=== PATIENT | female | born 1980 | race Caucasian/White ===

== ENCOUNTER → 2020-04-27 09:15 | Outpatient (CLI) | payer BC, OTHER, SELFPAY ==
--- NOTE | ~2020-04-27 | US_ITS ---
EXAMINATION: US thyroid DATE: 04/27/2020 09:37 INDICATION: Goiter. TECHNIQUE: Multiple ultrasound images of the thyroid were obtained. COMPARISON: Neck CT 01/18/2019 FINDINGS: The right thyroid lobe measures 5.5 x 1.7 x 2.1 cm. The left thyroid lobe measures 5.1 x 1.6 x 2.2 c m. In the left thyroid lobe, there is a 1.1 cm solid, hypoechoic, cswns-ulhz-ssri nodule with smooth margin without echogenic foci (TI-RADS TR4). In the left thyroid lobe, there is a 5 mm solid, hypoec hoic, tzhvr-ftwr-yatt nodule with smooth margin without echogenic foci (TR4). In the right thyroid lo be, there is a 2.0 cm solid, isoechoic, zqjey-bhir-nuns nodule with ill-defined margin without echoge marko foci (TR3). IMPRESSION: 1. Thyroid nodules. Thyroid ultrasound is recommended in one year. Reviewed, dictated and finalized at location B.
== END ==
PROVIDERS: PCP Family Medicine; Visit Provider Internal Medicine Endocrinology, Diabetes & Metabolism
DX: E04.2 Nontoxic multinodular goiter (principal)
CPT/HCPCS: 76536

== ENCOUNTER 2020-05-17 14:25 | Outpatient (CLI) | payer BC, OTHER, SELFPAY ==
--- NOTE | ~2020-05-17 | NM_ITS ---
EXAMINATION: NM thyroid scan w uptake DATE: 05/18/2020 15:14 INDICATION: Nontoxic single thyroid nodule. COMPARISON: Ultrasound 04/27/2020 TECHNIQUE: 0.336 mCi I-123 was administered orally. Scintigraphic images of the thyroid gland were o btained at 24 hours. Thyroid uptake was calculated by the technologist. FINDINGS: The thyroid uptake is 23% (normal 10-30%), with the right lobe measuring 14% uptake and the left 10%. There is no focal area of decreased or increased activity to suggest hypofunctioning or hyperfunctio alma nodule. IMPRESSION: 1. Normal thyroid scintigraphy and 24-hour iodine uptake. Reviewed, dictated and finalized at location A.
== END 2020-05-17 14:26 | disposition home or self-care (01) ==
LOC: ANHIMG 14:31
PROVIDERS: PCP Family Medicine; Visit Provider Internal Medicine Endocrinology, Diabetes & Metabolism
DX: E04.1 Nontoxic single thyroid nodule (principal)
CPT/HCPCS: 78014; A9516

== ENCOUNTER 2020-06-01 09:55 | Outpatient (CLI) | payer BC, OTHER, SELFPAY ==
--- NOTE | ~2020-06-01 | US_ITS ---
EXAMINATION: US FNA w image guidance DATE: 06/01/2020 11:28 INDICATION: Nontoxic thyroid nodules TECHNIQUE: A time-out was performed to verify the patient's name, date of , and procedure to be performed . The procedure and its benefits and risks were discussed with the patient. Risks specifically discus sed included bleeding and infection. The patient understood the risks and agreed to proceed. The neck was prepped and draped in the usual sterile manner. Attention was first turned to the left thyroid n odule. 3 mL 1% lidocaine was used for local anesthesia. 6 passes were made with a 25G needle into th e lesion. Appropriate needle location was documented with continuous sonographic guidance. Attention was then turned to the poorly defined nodule/region of concern in the right thyroid lobe. An additio nal 3 mm 1% lidocaine was used for local anesthesia. 6 passes were made with a 25G needle into the l esion. Appropriate needle location was documented with continuous sonographic guidance. Sterile band ages were applied. There were no immediate complications. FINDINGS: Grayscale ultrasound images demonstrate biopsy needles advanced into first a 1.1 cm TI RADS 4 hypoech oic solid nodule in the inferior left thyroid lobe. Subsequent images demonstrate biopsy needles adva nced into an approximately 2.0 cm poorly defined region of slightly decreased echogenicity and coarse hu echotexture in the inferior right thyroid lobe. IMPRESSION: 1. Successful ultrasound-guided fine needle aspiration of a 1.1 cm TI RADS 4 left thyroid nodule. 2. Successful ultrasound-guided fine-needle aspiration of a 2.0 cm region of subtly decreased echogen icity and coarsened echotexture in the inferior right thyroid. It is unclear whether this represents a true discrete nodule. Reviewed, dictated and finalized at location A. IMPRESSION: 1. Successful ultrasound-guided fine needle aspiration of a 1.1 cm TI RADS 4 l eft thyroid nodule. 2. Successful ultrasound-guided fine-needle aspiration of a 2.0 cm region of acosta btly decreased echogenicity and coarsened echotexture in the inferior right thy roid. It is unclear whether this represents a true discrete nodule.
--- NOTE | ~2020-06-01 | US_ITS ---
EXAMINATION: US FNA w image guidance, US FNA additional DATE: 06/01/2020 11:28 INDICATION: Nontoxic thyroid nodules TECHNIQUE: A time-out was performed to verify the patient's name, date of , and procedure to be performed . The procedure and its benefits and risks were discussed with the patient. Risks specifically discus sed included bleeding and infection. The patient understood the risks and agreed to proceed. The neck was prepped and draped in the usual sterile manner. Attention was first turned to the left thyroid n odule. 3 mL 1% lidocaine was used for local anesthesia. 6 passes were made with a 25G needle into th e lesion. Appropriate needle location was documented with continuous sonographic guidance. Attention was then turned to the poorly defined nodule/region of concern in the right thyroid lobe. An additio nal 3 mm 1% lidocaine was used for local anesthesia. 6 passes were made with a 25G needle into the l esion. Appropriate needle location was documented with continuous sonographic guidance. Sterile band ages were applied. There were no immediate complications. FINDINGS: Grayscale ultrasound images demonstrate biopsy needles advanced into first a 1.1 cm TI RADS 4 hypoech oic solid nodule in the inferior left thyroid lobe. Subsequent images demonstrate biopsy needles adva nced into an approximately 2.0 cm poorly defined region of slightly decreased echogenicity and coarse hu echotexture in the inferior right thyroid lobe. IMPRESSION: 1. Successful ultrasound-guided fine needle aspiration of a 1.1 cm TI RADS 4 left thyroid nodule. 2. Successful ultrasound-guided fine-needle aspiration of a 2.0 cm region of subtly decreased echogen icity and coarsened echotexture in the inferior right thyroid. It is unclear whether this represents a true discrete nodule. Reviewed, dictated and finalized at location A. IMPRESSION: 1. Successful ultrasound-guided fine needle aspiration of a 1.1 cm TI RADS 4 l eft thyroid nodule. 2. Successful ultrasound-guided fine-needle aspiration of a 2.0 cm region of acosta btly decreased echogenicity and coarsened echotexture in the inferior right thy roid. It is unclear whether this represents a true discrete nodule.
== END 2020-06-01 09:56 | disposition home or self-care (01) ==
PROVIDERS: PCP Family Medicine; Visit Provider Internal Medicine Endocrinology, Diabetes & Metabolism
DX: E04.1 Nontoxic single thyroid nodule (principal)
CPT/HCPCS: 10005; 10006; 88173; 88305

== ENCOUNTER → 2020-08-30 10:38 | Outpatient (CLI) | payer BC, OTHER, SELFPAY ==
--- NOTE | ~2020-08-30 | US_ITS ---
EXAMINATION: US pelvic complete w TV DATE: 08/30/2020 11:34 INDICATION: Enlarged uterus. Comparison:06/01/2020 TECHNIQUE: Multiple transabdominal and endovaginal sonographic images of the pelvis performed. FINDINGS: The uterus measures 8 x 5.6 x 6.9 cm. There is a echogenic mass in the fundus measuring 3.2 x 2.6 x 2.5 cm. The endometrial complex measures 8 mm. The right ovary measures 2.9 x 2.2 x 3.1 cm and the left ovary measures 2.7 x 2.1 x 3.2 cm. There ar e small follicles in each ovary. There is no free fluid in the pelvis. There are no abnormal masses seen on either side. IMPRESSION: 1. Uterine mass at the fundus consistent with fibroid measuring 3.2 x 2.6 x 2.5 cm. Reviewed, dictated and finalized at location A. LE PASTER
== END ==
PROVIDERS: Visit Provider Family Medicine
DX: N85.8 Other specified noninflammatory disorders of uterus (principal); N85.2 Hypertrophy of uterus
CPT/HCPCS: 76830; 76856

== ENCOUNTER → 2020-09-25 08:15 | Outpatient (CLI) | payer BC, OTHER, SELFPAY ==
--- NOTE | ~2020-09-25 | US_ITS ---
EXAMINATION: US thyroid EXAM DATE: 09/25/2020 09:13 INDICATION: Nontoxic single thyroid nodule. TECHNIQUE: Multiple grayscale and Doppler images of the thyroid were obtained (by a technologist who performed the scan) and subsequently reviewed. Individual nodules and recommendations may be reporte d in accordance with TI-RADS system as designated by the 2017 ACR White Paper TI-RADS committee. Comp demetrius is made to prior examination from 04/27/2020. FINDINGS: The right thyroid lobe measures 4.9 x 2.1 x 1.7 cm, the left measuring 4.8 x 1.7 x 2.0 cm. These dime nsions are mildly enlarged. There are several thyroid nodules identified. Largest nodule is in the left thyroid lobe inferior pole measuring up to 1.1 cm, category TR 4 unchan ged. Previously described larger right thyroid lobe isoechoic region is no longer specifically measur ed, no focal nodule suspected, may have just been a lobulation. IMPRESSION: Multinodular goiter, stable. Consider one-year follow-up ultrasound. Reviewed, dictated and finalized at location B. AGE GARAGE MANAGER IMPRESSION: Multinodular goiter, stable. Consider one-year follow-up ultrasound .
== END ==
PROVIDERS: PCP Family Medicine; Visit Provider Internal Medicine Endocrinology, Diabetes & Metabolism
DX: E04.2 Nontoxic multinodular goiter (principal)
CPT/HCPCS: 76536

== ENCOUNTER 2021-05-28 12:46 | Outpatient (CLI) | payer BC, OTHER, SELFPAY | END 2021-05-28 12:47 | disposition home or self-care (01) | PROVIDERS: PCP Family Medicine; Visit Provider Otolaryngology | DX: H93.19 Tinnitus, unspecified ear (principal) | CPT/HCPCS: 92557; 92567 ==

== ENCOUNTER → 2021-07-16 10:06 | Outpatient (CLI) | payer BC, OTHER, SELFPAY ==
--- NOTE | ~2021-07-16 | MR_ITS ---
EXAMINATION: MR brain IAC wo/w con EXAM DATE: 07/16/2021 11:10 INDICATION: Tinnitus of right ear tinnitus of left ear. TECHNIQUE: Multi-sequential, multiplanar MR images of the brain, brainstem, internal auditory canals were obtained without contrast. Whole brain sagittal T1, axial diffusion, gradient echo (T2*), T1, T 2, FLAIR sequences obtained. High resolution coronal 3-D FIESTA, coronal T1 FSE, axial T1 FSPGR of t he internal auditory canals. Patient was then injected with 18 cc Multihance contrast intravenously. Postcontrast axial and coronal T1 weighted whole brain, axial and coronal high resolution T1 IAC seq uences obtained. There is no prior study for comparison. FINDINGS: No evidence of mastoid or middle ear opacification. The 7th/8th cranial nerve complexes a re symmetric, normal in course and caliber. No cerebellopontine angle masses. Posterior fossa unrem arkable. There are no areas of restricted diffusion to suggest acute infarction. There is no acute hemorrhage seen on the T2*, a hemosiderin sensitive sequence. No intraparenchymal brain mass. The ventricles a re normal in size. There are no extra-axial collections. Flow voids are seen in the cerebral arteri es on the T2-weighted sequences consistent with their expected patency. The orbits are unremarkable. Soft tissue is unremarkable. There are no areas of abnormal enhancement on the postcontrast image s. IMPRESSION: Normal brain/IAC MRI examination. Reviewed, dictated and finalized at location A.
[2021-07-16 10:38] LABS: Estimated Glomerular Filt Rate > 60
== END ==
PROVIDERS: Visit Provider Otolaryngology
DX: H93.11 Tinnitus, right ear (principal)
CPT/HCPCS: 70553; A9577

== ENCOUNTER 2021-09-14 11:47 | Outpatient (CLI) | payer BC, OTHER, SELFPAY ==
--- NOTE | ~2021-09-14 | US_ITS ---
EXAMINATION: US thyroid EXAM DATE: 09/14/2021 12:06 INDICATION: Nontoxic multinodular goiter . TECHNIQUE: Multiple grayscale and Doppler images of the thyroid were obtained (by a technologist who performed the scan) and subsequently reviewed. Individual nodules and recommendations may be reporte d in accordance with TI-RADS system as designated by the 2017 ACR White Paper TI-RADS committee. Comp luis miguelson is made to prior examination from 09/15/2020. FINDINGS: The right thyroid lobe measures 6.0 x 2.0 x 2.0 cm, the left measuring 5.1 x 2.0 x 1.9 cm, moderately enlarged. These dimensions are also larger than on previous examination. Left thyroid lobe nodule measuring 1.2 x 0.6 x 1.2 cm, not significantly changed. Several other thyro id nodules are subcentimeter in size. IMPRESSION: Multinodular goiter, stable. Consider follow-up ultrasound in 2 years. Reviewed, dictated and finalized at location A. OMS DIRECTOR IMPRESSION: Multinodular goiter, stable. Consider follow-up ultrasound in 2 yea rs.
== END 2021-09-14 11:48 ==
PROVIDERS: PCP Family Medicine; Visit Provider Internal Medicine Endocrinology, Diabetes & Metabolism
DX: E04.2 Nontoxic multinodular goiter (principal)
CPT/HCPCS: 76536

== ENCOUNTER → 2022-11-29 14:56 | Outpatient (CLI) | payer OTHER, SELFPAY ==
--- NOTE | ~2022-11-29 | US_ITS ---
EXAMINATION: US pelvic complete w TV DATE: 11/29/2022 15:26 INDICATION: Right lower quadrant pain Comparison:Ultrasound dated 08/30/2020 TECHNIQUE: Multiple transabdominal and endovaginal sonographic images of the pelvis performed. FINDINGS: The uterus measures 7.5 x 4.8 x 6.3 cm. The endometrial complex measures 10 mm. The right ovary measures 3.3 x 2.1 x 3.8 cm and the left ovary measures 3 x 2.1 x 2.8 cm. There are small follicles in each ovary. Normal doppler signal in both ovaries. There is no free fluid in the pelvis. There are no abnormal masses seen on either side. IMPRESSION: 1. Normal pelvic ultrasound. Reviewed, dictated and finalized at location A.
== END ==
PROVIDERS: PCP Family Medicine; Visit Provider Family Medicine
DX: R10.9 Unspecified abdominal pain (principal)
CPT/HCPCS: 76830; 76856

== ENCOUNTER 2023-10-13 17:45 | Outpatient (CLI) | payer OTHER, SELFPAY ==
--- NOTE | ~2023-10-13 | XR_ITS ---
EXAMINATION: XR chest 2V Exam Date/Time: 10/13/2023 18:02 TEACHING FELLOW HISTORY: COUGH W/ PHLEGM [id number] Comparison: 07/08/2017. RESULT: Lines, tubes, and devices: None. Lungs and pleura: Clear. Cardiomediastinal silhouette: Stable. Other: No acute osseous or upper abdominal finding. IMPRESSION: No acute cardiopulmonary process. Reviewed, dictated and finalized at location K. HING FELLOW
== END 2023-10-13 17:46 | disposition home or self-care (01) ==
LOC: ANHIMG 17:48
PROVIDERS: PCP Family Medicine; Visit Provider Family Medicine
DX: R05.9 Cough, unspecified (principal)
CPT/HCPCS: 71046